=== PATIENT | female | born 1970 | race Caucasian/White ===

== ENCOUNTER 2016-06-08 11:33 | Emergency (ER) | payer MEDICARE, MEDICAID ==
[~2016-06-08] VITALS: Ht 160 cm; Wt 53.5 kg
[~2016-06-08 11:33] MED LIST: ALPR.5T PO; CYCL10TA9 PO; EPIN0.3P3 IM; HYDR1CAP2 PO; LAMO50TA2 PO; NAPR-243 PO; PRD20T PO
--- OUTSIDE RECORDS SUMMARY | 2016-06-08 11:41 | XMS REPORT ---
Author Author MORRIS NGUYEN [facility] Address [address] [place], [place] [id number] Care Team Providers Care Staff Forester Name Role Phone Leeanne NGUYEN PCP Unavailable Allergies and Adverse Reactions Name Reaction Notes codeine sulfate lovastatin muscle aches Plan of Treatment Not available. Medications Active Name Start Date Estimated Completion Date SIG Comments Zovirax 5 % topical ointment 07/05/2013 apply to the affected area(s) by topical route every 3 hours 6 times per day Flonase 50 mcg/actuation nasal spray,suspension 09/05/2013 inhale 1 spray by nasal route 2 times a day simvastatin 20 mg oral tablet 09/21/2013 take 1 tablet (20 mg) by oral route once daily in the evening cyclobenzaprine 10 mg oral tablet 03/20/2014 TAKE ONE TABLET BY MOUTH THREE TIMES A DAY hydrocodone-acetaminophen 7.5-325 mg oral tablet 10/25/2014 take 1 tablet by oral route every 6 hours as needed for pain Xanax 1 mg oral tablet 10/25/2014 04/23/2015 1 po BID PRN anxiety. must last 30 days simvastatin 20 mg oral tablet 10/25/2014 TAKE ONE TABLET BY MOUTH EVERY EVENING Vyvanse 30 mg oral capsule 01/29/2015 take 1 capsule (30 mg) by oral route once daily in the morning Name Start Date Expiration Date SIG Comments Darvocet-N 100 100-650 mg oral tablet 11/08/2009 take 1 tablet by oral route 4 times a day Fioricet 50-325-40 mg oral tablet 02/15/2010 02/18/2010 TAKE ONE TABLET BY MOUTH EVERY 4 HOURS NEEDED - NOT TO EXCEED 6 TABLETS PER 24 HOURS Vicodin 5-500 mg oral tablet 02/19/2010 02/19/2010 take 1 tablet by oral route every 4-6 hours as needed for pain Protonix 40 mg oral tablet,delayed release (DR/EC) 12/03/2010 12/03/2010 take 1 tablet (40 mg) by oral route at HS Diflucan 150 mg oral tablet 06/02/2011 06/04/2011 take 1 tablet po today and repeat in 1 week promethazine 25 mg oral tablet 06/03/2011 06/10/2011 TAKE ONE TABLET BY MOUTH EVERY 6 HOURS NEEDED Cipro 500 mg oral tablet 06/20/2011 06/30/2011 take 1 tablet (500 mg) by oral route every 12 hours for 10 days Medrol (Alexis) 4 mg oral tablets,dose pack 06/20/2011 06/26/2011 take as directed for 6 days Lamictal 100 mg oral tablet 07/08/2011 08/07/2011 TAKE ONE TABLET BY MOUTH TWICE A DAY Flexeril 10 mg oral tablet 11/25/2011 12/25/2011 TAKE ONE TABLET BY MOUTH THREE TIMES A DAY NEEDED FOR SPASMS pantoprazole 40 mg oral tablet,delayed release (DR/EC) 03/29/2012 03/29/2012 take 1 tablet (40 mg) by oral route once daily albuterol sulfate 90 mcg/actuation inhalation HFA aerosol inhaler 04/20/2012 04/20/2012 inhale 1 puff by inhalation route every 4-6 hours as needed sertraline 50 mg oral tablet 05/25/2012 05/25/2012 take 1 tablet (50 mg) by oral route BID Nasonex 50 mcg/actuation nasal spray,non-aerosol 09/07/2012 01/05/2013 spray 2 sprays in each nostril by intranasal route once daily for 30 days triamcinolone acetonide 0.1 % topical cream 09/28/2012 10/08/2012 apply a thin film to the affected skin areas by topical route 2 times per day for 10 days Medrol (Alexis) 4 mg oral tablets,dose pack 09/28/2012 take as directed cyclobenzaprine 10 mg oral tablet 09/28/2012 09/28/2012 take 1 tablet by oral route 3 times a day as needed for 30 days Strattera 25 mg oral capsule 09/05/2013 10/05/2013 take 1 capsule (25 mg) by oral route once daily in the morning for 30 days Suphedrine 30 mg oral tablet 06/12/2014 06/22/2014 take 2 tablets (60 mg) by oral route every 4 hours as needed for 10 days Discontinued Name Start Date Discontinued Date SIG Comments Lortab 7.5-500 mg oral tablet 10/08/2009 11/08/2009 take 1 tablet by oral route every 6 hours as needed for pain for 30 days Zovirax 5 % topical ointment 04/24/2011 04/13/2012 apply to the affected area(s) by topical route every 3 hours 6 times per day Prevacid 30 mg oral capsule,delayed release(DR/EC) 08/21/2011 03/01/2012 TAKE ONE CAPSULE BY MOUTH EVERY DAY BEFORE A MEAL lovastatin 20 mg oral tablet 10/13/2012 09/21/2013 take 1 tablet (20 mg) by oral route once daily with the evening meal Celexa 20 mg oral tablet 09/19/2013 12/15/2013 take 1 tablet (20 mg) by oral route once daily for 30 days Fetzima 40 mg oral capsule,extended release 24 hr 01/31/2014 05/15/2014 take 1 capsule (40 mg) by oral route once daily at approximately the same time each day Brintellix 5 mg oral tablet 05/15/2014 01/29/2015 take 1 tablet (5 mg) by oral route once daily at the same time each day Problem List Description Status Onset Gastroesophageal Reflux Active Muscle Spasm Active Neck pain Active Anxiety Active 10/07/2012 Hyperlipidemia, unspecified Active 10/07/2012 retirement medication use Active 10/07/2012 Panic disorder Active 10/07/2012 Chronic pain Active 03/01/2013 Depressive Disorder Active 05/15/2014 Paranoia Active 11/06/2014 Hypercholesteremia Active 03/26/2015 Chronic pain due to trauma Active 03/26/2015 Vital Signs Date Time BP-Sys(mm[Hg] BP-Shena(mm[Hg]) HR(bpm) RR(rpm) Temp WT HT HC BMI BSA BMI Percentile O2 Sat(%) 03/22/2015 9:20:00 AM 138 mmHg 70 mmHg 90 bpm 16 rpm 98.2 F 119.125 lbs 63 in 21.10 kg/m2 1.55 m2 100 % 03/13/2015 9:20:00 AM 130 mmHg 70 mmHg 92 bpm 16 rpm 98.4 F 117 lbs 61.5 in 21.7487 kg/m 1.5175 m 98 % 02/20/2015 8:04:00 AM 110 mmHg 60 mmHg 82 bpm 16 rpm 98.2 F 118 lbs 62.5 in 21.24 kg/m2 1.54 m2 100 % 01/22/2015 8:58:00 AM 110 mmHg 60 mmHg 102 bpm 18 rpm 97.6 F 124 lbs 61.5 in 23.0499 kg/m 1.5622 m 100 % 10/25/2014 8:27:00 AM 120 mmHg 70 mmHg 84 bpm 18 rpm 98.4 F 123 lbs 62.5 in 22.14 kg/m2 1.57 m2 98 % 06/06/2014 9:22:00 AM 110 mmHg 78 mmHg 87 bpm 18 rpm 97.9 F 130 lbs 63 in 23.0282 kg/m 1.619 m 100 % 05/11/2014 2:27:00 PM 100 mmHg 60 mmHg 90 bpm 20 rpm 98 F 132 lbs 63 in 23.38 kg/m2 1.63 m2 100 % 01/31/2014 9:47:00 AM 118 mmHg 66 mmHg 88 bpm 22 rpm 98.9 F 125.437 lbs 63 in 22.22 kg/m 1.5903 m 100 % 12/29/2013 8:32:00 AM 126 mmHg 68 mmHg 100 bpm 20 rpm 96.6 F 120 lbs 63 in 21.26 kg/m2 1.56 m2 100 % 12/15/2013 8:18:00 AM 110 mmHg 64 mmHg 76 bpm 20 rpm 96.9 F 120.25 lbs 63 in 21.3011 kg/m 1.5571 m 100 % 09/19/2013 8:42:00 AM 122 mmHg 64 mmHg 90 bpm 16 rpm 98.4 F 122 lbs 63 in 21.61 kg/m2 1.57 m2 100 % 09/05/2013 9:05:00 AM 126 mmHg 60 mmHg 114 bpm 22 rpm 98.7 F 117.5 lbs 63 in 20.814 kg/m 1.5392 m 100 % 06/01/2013 9:48:00 AM 118 mmHg 66 mmHg 90 bpm 20 rpm 97.8 F 125 lbs 63 in 22.14 kg/m2 1.59 m2 100 % 02/28/2013 11:23:00 AM 118 mmHg 70 mmHg 92 bpm 20 rpm 98.8 F 125 lbs 63 in 22.1425 kg/m 1.5875 m 100 % 01/24/2013 9:10:00 AM 122 mmHg 64 mmHg 112 bpm 20 rpm 98.2 F 124.312 lbs 63 in 22.02 kg/m2 1.58 m2 100 % 10/07/2012 8:28:00 AM 110 mmHg 60 mmHg 110 bpm 20 rpm 97.9 F 124 lbs 63 in 21.9654 kg/m 1.5812 m 96 % 04/13/2012 9:36:00 AM 130 mmHg 60 mmHg 78 bpm 16 rpm 97.9 F 128.562 lbs 63 in 22.77 kg/m2 1.61 m2 100 % 01/14/2012 10:26:00 AM 160 mmHg 60 mmHg 94 bpm 20 rpm 97.8 F 130 lbs 63 in 23.0282 kg/m 1.619 m 100 % 01/01/2012 9:33:00 AM 120 mmHg 60 mmHg 100 bpm 24 rpm 134 lbs 63 in 23.74 kg/m2 1.64 m2 100 % 09/25/2011 9:58:00 AM 114 mmHg 76 mmHg 80 bpm 138 lbs 63 in 24.4454 kg/m 1.6681 m 07/16/2011 10:00:00 AM 122 mmHg 80 mmHg 84 bpm 137 lbs 63 in 24.27 kg/m2 1.66 m2 04/29/2011 9:30:00 AM 112 mmHg 76 mmHg 84 bpm 138 lbs 63 in 24.4454 kg/m 1.6681 m 03/13/2011 11:17:00 AM 118 mmHg 76 mmHg 90 bpm 134 lbs 63 in 23.74 kg/m2 1.64 m2 12/03/2010 9:28:00 AM 122 mmHg 78 mmHg 90 bpm 129 lbs 05/22/2010 9:09:00 AM 114 mmHg 74 mmHg 76 bpm 133 lbs 04/01/2010 10:07:00 AM 118 mmHg 74 mmHg 72 bpm 129 lbs 11/07/2009 2:53:00 PM 110 mmHg 68 mmHg 84 bpm 131 lbs Social History Name Description Comments Tobacco Current every day smoker Alcohol Use History of Procedures Date Ordered Description Order Status 03/13/2015 12:00 AM COMPLETE CBC W/AUTO DIFF WBC Returned 03/13/2015 12:00 AM COMPREHEN METABOLIC PANEL Returned 03/13/2015 12:00 AM LIPID PANEL Returned 04/29/2011 12:00 AM THER/PROPH/DIAG INJ SC/IM Reviewed 04/29/2011 12:00 AM Decadron Inj.1mg-([facility]) [facility] #[id number] Reviewed 04/29/2011 12:00 AM Depo-Medrol 80 Mg Im/[facility] [id number] Reviewed 07/16/2011 12:00 AM THER/PROPH/DIAG INJ SC/IM Reviewed 07/16/2011 12:00 AM Decadron Inj.1mg-() [facility] #[id number] Reviewed 07/16/2011 12:00 AM Depo-Medrol 80 Mg Im/[facility] [id number] Reviewed 01/01/2012 12:00 AM THER/PROPH/DIAG INJ SC/IM Reviewed 01/01/2012 12:00 AM Decadron, Per 1 Mg [facility]# [address]-05 Reviewed 01/01/2012 12:00 AM Depo-Medrol, Per 80 Mg [facility]#2249-7586-68 Reviewed 01/01/2012 12:00 AM ROUTINE VENIPUNCTURE Reviewed 01/01/2012 12:00 AM COMPLETE CBC W/AUTO DIFF WBC Reviewed 01/01/2012 12:00 AM COMPREHEN METABOLIC PANEL Reviewed 01/01/2012 12:00 AM LIPID PANEL Reviewed 01/01/2012 12:00 AM ASSAY THYROID STIM HORMONE Reviewed 10/07/2012 12:00 AM COMPREHEN METABOLIC PANEL Reviewed 10/07/2012 12:00 AM LIPID PANEL Reviewed 10/07/2012 12:00 AM ROUTINE VENIPUNCTURE Reviewed 01/24/2013 12:00 AM COMPLETE CBC W/AUTO DIFF WBC Reviewed 01/24/2013 12:00 AM COMPREHEN METABOLIC PANEL Reviewed 01/24/2013 12:00 AM LIPID PANEL Reviewed 01/24/2013 12:00 AM ROUTINE VENIPUNCTURE Reviewed 01/24/2013 12:00 AM THER/PROPH/DIAG INJ SC/IM Reviewed 01/24/2013 12:00 AM Decadron, Per 1 Mg [facility]# [address]-44 Reviewed 01/24/2013 12:00 AM Depo-Medrol, Per 80 Mg [facility]#7201-1250-04 Reviewed 01/24/2013 12:00 AM Toradol 60 Mg [facility]#2516-4304-66 Reviewed 09/19/2013 12:00 AM COMPLETE CBC W/AUTO DIFF WBC Reviewed 09/19/2013 12:00 AM COMPREHEN METABOLIC PANEL Reviewed 09/19/2013 12:00 AM LIPID PANEL Reviewed 09/19/2013 12:00 AM ASSAY THYROID STIM HORMONE Reviewed 09/19/2013 12:00 AM ROUTINE VENIPUNCTURE Reviewed 05/22/2010 12:00 AM THER/PROPH/DIAG INJ SC/IM Reviewed 05/22/2010 12:00 AM Decadron Inj.8mg-([facility]) [facility] #[id number] Reviewed 05/22/2010 12:00 AM Depo-Medrol 80 Mg Im/[facility] [id number] Reviewed 12/15/2013 12:00 AM COMPREHEN METABOLIC PANEL Reviewed 12/15/2013 12:00 AM LIPID PANEL Reviewed 12/15/2013 12:00 AM ROUTINE VENIPUNCTURE Reviewed 12/15/2013 12:00 AM EXC TR-EXT B9+RICHI 0.6-1 CM Reviewed 12/15/2013 12:00 AM EXC H-F-NK-SP B9+RICHI 0.6-1 Reviewed 12/15/2013 12:00 AM EXC FACE-MM B9+RICHI 0.6-1 CM Reviewed Results Summary Data and Description Results 01/01/2012 3:49 PM WBC 6.5 RBC 4.43 HGB 13.90 g/dLHCT 42.10 %MCV 95.0 fLMCH 31.40 pgMCHC 33.0 g/dLRDW CV 12.30 %MPV 11.0 fLPLT 368 GLUCOSE 82.0 mg/dLSODIUM 139.0 mmol/LPOTASSIUM 4.20 mmol/LCHLORIDE 105.0 mmol/LCO2 23.0 mmol/LBUN 10.0 mg /dLCREATININE 0.80 mg/dLSGOT/AST 15.0 IU/LSGPT/ALT 8.0 IU/LALK PHOS 64.0 IU/ LTOTAL PROTEIN 7.10 g/dLALBUMIN 4.40 g/dLTOTAL BILI 0.50 mg/dLCALCIUM 9.80 mg/ dLeGFR 60 TRIGLYCERIDES 230.0 mg/dLCHOLESTEROL 234.0 mg/dLHDL 39.0 mg/dLLDL ( CALC) 149.0 mg/dLTSH 0.860 uIU/mL 10/07/2012 4:27 PM GLUCOSE 67.0 mg/dLSODIUM 141.0 mmol/LPOTASSIUM 4.90 mmol/ LCHLORIDE 101.0 mmol/LCO2 27.0 mmol/LBUN 11.0 mg/dLCREATININE 0.70 mg/dLSGOT/ AST 16.0 IU/LSGPT/ALT 13.0 IU/LALK PHOS 59.0 IU/LTOTAL PROTEIN 7.40 g/dLALBUMIN 4.40 g/dLTOTAL BILI 0.20 mg/dLCALCIUM 9.80 mg/dLeGFR 60 TRIGLYCERIDES 198.0 mg/ dLCHOLESTEROL 251.0 mg/dLHDL 53.0 mg/dLLDL (CALC) 158.0 mg/dL 01/24/2013 3:44 PM WBC 6.3 RBC 4.47 HGB 14.40 g/dLHCT 42.0 %MCV 94.0 fLMCH 32.20 pgMCHC 34.30 g/dLRDW CV 12.50 %MPV 10.40 fLPLT 353 %NEUT 55.10 %%LYMP 38.60 %%MONO 5.60 %%EOS 0.50 %%BASO 0.20 %#NEUT 3.47 #LYMP 2.43 #MONO 0.35 #EOS 0.03 #BASO 0.01 GLUCOSE 93.0 mg/dLSODIUM 138.0 mmol/LPOTASSIUM 4.40 mmol/ LCHLORIDE 103.0 mmol/LCO2 23.0 mmol/LBUN 9.0 mg/dLCREATININE 0.70 mg/dLSGOT/AST 22.0 IU/LSGPT/ALT 18.0 IU/LALK PHOS 56.0 IU/LTOTAL PROTEIN 7.20 g/dLALBUMIN 4.70 g/dLTOTAL BILI 0.50 mg/dLCALCIUM 9.70 mg/dLeGFR >60 mL/min/1.73 [id number] 127.0 mg/dLCHOLESTEROL 249.0 mg/dLHDL 58.0 mg/dLLDL (CALC) 166.0 mg/dL 09/19/2013 5:22 PM GLUCOSE 91.0 mg/dLSODIUM 137.0 mmol/LPOTASSIUM 4.0 mmol/ LCHLORIDE 103.0 mmol/LCO2 23.0 mmol/LBUN 11.0 mg/dLCREATININE 0.70 mg/dLSGOT/ AST 22.0 IU/LSGPT/ALT 20.0 IU/LALK PHOS 67.0 IU/LTOTAL PROTEIN 7.30 g/dLALBUMIN 4.40 g/dLTOTAL BILI 0.40 mg/dLCALCIUM 9.60 mg/dLeGFR 60 TSH 1.430 uIU/ mLTRIGLYCERIDES 190.0 mg/dLCHOLESTEROL 264.0 mg/dLHDL 55.0 mg/dLLDL (CALC) 171.0 mg/dLWBC 7.1 RBC 4.60 HGB 14.40 g/dLHCT 43.20 %MCV 94.0 fLMCH 31.30 pgMCHC 33.30 g/dLRDW CV 12.90 %MPV 10.70 fLPLT 329 %NEUT 50.60 %%LYMP 38.80 %% MONO 9.0 %%EOS 1.30 %%BASO 0.30 %#NEUT 3.61 #LYMP 2.77 #MONO 0.64 #EOS 0.09 # BASO 0.02 12/15/2013 2:04 PM TRIGLYCERIDES 111.0 mg/dLCHOLESTEROL 213.0 mg/dLHDL 70.0 mg/ dLLDL (CALC) 121.0 mg/dLGLUCOSE 89.0 mg/dLSODIUM 138.0 mmol/LPOTASSIUM 3.90 mmol /LCHLORIDE 102.0 mmol/LCO2 27.0 mmol/LBUN 9.0 mg/dLCREATININE 0.70 mg/dLSGOT/ AST 28.0 IU/LSGPT/ALT 39.0 IU/LALK PHOS 65.0 IU/LTOTAL PROTEIN 7.50 g/dLALBUMIN 4.60 g/dLTOTAL BILI 0.90 mg/dLCALCIUM 9.60 mg/dLeGFR 60 03/13/2015 4:22 PM WBC 7.1 RBC 4.61 HGB 14.80 g/dLHCT 44.40 %MCV 96.0 fLMCH 32.10 pgMCHC 33.30 g/dLRDW CV 12.70 %MPV 10.60 fLPLT 335 %NEUT 54.30 %%LYMP 38.80 %%MONO 5.70 %%EOS 0.80 %%BASO 0.40 %#NEUT 3.84 #LYMP 2.74 #MONO 0.40 #EOS 0.06 #BASO 0.03 GLUCOSE 104.0 mg/dLSODIUM 137.0 mmol/LPOTASSIUM 3.80 mmol/ LCHLORIDE 102.0 mmol/LCO2 24.0 mmol/LBUN 7.0 mg/dLCREATININE 0.80 mg/dLSGOT/AST 13.0 IU/LSGPT/ALT 15.0 IU/LALK PHOS 56.0 IU/LTOTAL PROTEIN 7.0 g/dLALBUMIN 4.70 g/dLTOTAL BILI 0.80 mg/dLCALCIUM 9.80 mg/dLeGFR >60 mL/min/1.73mTRIGLYCERIDES 87.0 mg/dLCHOLESTEROL 244.0 mg/dLHDL 58.0 mg/dLLDL (CALC) 169.0 mg/dL History Of Immunizations Not available. 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/07/2012 Panic disorder 10/07/2012 Chronic pain 03/01/2013 Depressive Disorder 05/15/2014 Gastroesophageal Reflux Apr 01 2010 10:07AM Headache Apr 01 2010 10:07AM Anxiety Disorder Apr 01 2010 10:07AM General Medical Exam, Adult Apr 01 2010 10:07AM Paranoia 11/06/2014 Migraine May 22 2010 9:08AM Depressive Disorder May 22 2010 9:08AM General Medical Exam, Adult May 22 2010 9:08AM Eustachian Tube Dysfunction May 22 2010 9:08AM Hypercholesteremia 03/26/2015 Chronic pain due to trauma 03/26/2015 Pain in joint; Knee Left Dec 03 2010 9:26AM Headache Mar 13 2011 11:13AM Anxiety Disorder Mar 13 2011 11:13AM Cervicalgia Mar 13 2011 11:13AM Nasopharyngitis, Acute (Common Cold) Apr 29 2011 9:34AM Post-nasal drainage Apr 29 2011 9:34AM Anxiety Disorder Jul 16 2011 10:01AM Insomnia Jul 16 2011 10:01AM Seasonal Allergies Jul 16 2011 10:01AM General Medical Exam, Adult Sep 25 2011 10:00AM Migraine Jan 01 2012 9:34AM Anxiety Disorder Jan 01 2012 9:34AM Depressive Disorder Jan 01 2012 9:34AM Seasonal Allergies Jan 01 2012 9:34AM General Medical Exam, Adult Jan 01 2012 9:34AM Hyperlipidemia, unspecified Jan 14 2012 10:33AM Headache Jan 14 2012 10:33AM Anxiety Disorder Jan 14 2012 10:33AM Cervicalgia Jan 14 2012 10:33AM Chronic pain Jan 14 2012 10:33AM Hyperlipidemia, unspecified Apr 13 2012 9:36AM Anxiety Disorder Apr 13 2012 9:36AM Tobacco Abuse Apr 13 2012 9:36AM Neck Pain Apr 13 2012 9:36AM Depressive Disorder Apr 13 2012 9:36AM Gastroesophageal Reflux Oct 07 2012 8:33AM Anxiety Oct 07 2012 8:33AM Hyperlipidemia, unspecified Oct 07 2012 8:33AM extermination supervisor medication use Oct 07 2012 8:33AM Anxiety Disorder Oct 07 2012 8:29AM Muscle Spasm Oct 07 2012 8:29AM Panic Disorder Oct 07 2012 8:29AM Anxiety Jan 24 2013 9:13AM Hyperlipidemia, unspecified Jan 24 2013 9:13AM extermination supervisor medication use Jan 24 2013 9:13AM Gastroesophageal Reflux Jan 24 2013 9:13AM Low Back Pain Jan 24 2013 9:10AM Sprain/Strain Jan 24 2013 9:10AM Hyperlipidemia, unspecified Feb 28 2013 11:23AM Chronic pain Feb 28 2013 11:23AM Dietary Counseling Feb 28 2013 11:23AM Anxiety Feb 28 2013 11:23AM Panic Disorder Feb 28 2013 11:23AM Abdominal Pain, Generalized Jun 01 2013 9:48AM Sprain/Strain Jun 01 2013 9:48AM Abdominal Tenderness, LLQ Jun 01 2013 9:48AM Seasonal Allergies Sep 05 2013 9:05AM Anxiety Sep 05 2013 9:05AM Panic Disorder Sep 05 2013 9:05AM Obsessive compulsive disorder Sep 05 2013 9:05AM Anxiety Sep 19 2013 8:44AM Chronic pain Sep 19 2013 8:44AM Hyperlipidemia, unspecified Sep 19 2013 8:44AM extermination supervisor medication use Sep 19 2013 8:44AM Gastroesophageal Reflux Sep 19 2013 8:44AM Tobacco Abuse Sep 19 2013 8:42AM Fatigue Sep 19 2013 8:42AM Anxiety Sep 19 2013 8:42AM Panic Disorder Sep 19 2013 8:42AM Hyperlipidemia, unspecified Sep 19 2013 8:42AM Hyperlipidemia, unspecified Dec 15 2013 11:32AM extermination supervisor medication use Dec 15 2013 11:32AM Benign cyst of skin Dec 15 2013 11:55AM Anxiety Dec 15 2013 8:18AM Panic Disorder Dec 15 2013 8:18AM Muscle Spasm Dec 15 2013 8:18AM Epidermal cyst Dec 15 2013 8:18AM Hyperlipidemia, unspecified Dec 29 2013 8:33AM Chronic pain Dec 29 2013 8:33AM Anxiety Disorder Dec 29 2013 8:33AM Depressive Disorder Dec 29 2013 8:33AM Tobacco Abuse Dec 29 2013 8:33AM Seasonal Allergies Dec 29 2013 8:33AM Anxiety Dec 29 2013 8:33AM Panic Disorder Dec 29 2013 8:33AM Muscle Spasm Dec 29 2013 8:33AM Neck Pain Dec 29 2013 8:33AM Anxiety Disorder Jan 31 2014 9:48AM Depressive Disorder Jan 31 2014 9:48AM Constipation Jan 31 2014 9:48AM Panic anxiety syndrome Jan 31 2014 9:48AM Depressive Disorder May 11 2014 2:27PM Anxiety May 11 2014 2:27PM Panic Disorder May 11 2014 2:27PM Muscle spasm May 11 2014 2:27PM Neck pain May 11 2014 2:27PM Eustachian Tube Dysfunction Jun 06 2014 9:24AM Upper Respiratory Infection Jun 06 2014 9:24AM Sinus pressure Jun 06 2014 9:24AM Abdominal Pain, Generalized Oct 25 2014 8:27AM Depressive Disorder Oct 25 2014 8:27AM Anxiety Oct 25 2014 8:27AM Panic disorder Oct 25 2014 8:27AM Gastroesophageal Reflux Oct 25 2014 8:27AM Paranoia Oct 25 2014 8:27AM Shoulder pain, right Jan 22 2015 8:59AM Rotator cuff Sprain/injury Jan 22 2015 8:59AM Anxiety Feb 20 2015 8:05AM Panic disorder Feb 20 2015 8:05AM OCD (obsessive compulsive disorder) Feb 20 2015 8:05AM Memory difficulties Feb 20 2015 8:05AM ADD (attention deficit disorder) Feb 20 2015 8:05AM Anxiety Mar 13 2015 9:32AM Hyperlipidemia, unspecified Mar 13 2015 9:32AM extermination supervisor medication use Mar 13 2015 9:32AM Gastroesophageal Reflux Mar 13 2015 9:32AM Acute Breast lump in female Mar 13 2015 9:21AM Chronic pain due to trauma Mar 22 2015 9:21AM Moderate Acute Hypercholesteremia Mar 22 2015 9:21AM Moderate Chronic Anxiety Mar 22 2015 9:21AM Chronic Panic disorder Stable Mar 22 2015 9:21AM Chronic Paranoia Stable Mar 22 2015 9:21AM Gastroesophageal reflux disease without esophagitis Mar 22 2015 9:21AM Moderate Chronic Neck pain Stable Mar 22 2015 9:21AM Payers Insurance Name Company Name Plan Name Plan Number Policy Number Policy Group Number Start Date Medicare Part A Medicare Part A [id number] N/A [place] [employer] [place] [employer] Pro[place] [id number] N/A Fernie Barriga [employer] Raquel Garza. Fernie Barriga & Greg, [facility] 4-18 -11 N/A [facility] [id number] N/A [place] [employer] Prog - [facility] Asst Prog [facility] [id number] N/A History of Encounters Visit Date Visit Type Provider 03/22/2015 Office visit MORRIS CUELLO 03/13/2015 Office visit MORRIS NGUYEN PA 02/20/2015 Office visit MORRIS CUELLO 01/22/2015 Office visit MORRIS NGUYEN PA 10/25/2014 Office visit MORRIS CUELLO 06/06/2014 Office visit MORRIS CUELLO 05/11/2014 Office visit MORRIS NGUYEN PA 01/31/2014 Office visit MORRIS NGUYEN PA 12/29/2013 Office visit MORRIS CUELLO 12/15/2013 Office visit MORRIS CUELLO 09/19/2013 Office visit MORRIS CUELLO 09/05/2013 Office visit MORRIS CUELLO 06/01/2013 Office visit MORRIS CUELLO 02/28/2013 Office visit MORRIS CUELLO 01/24/2013 Office visit MORRIS CUELLO 10/07/2012 Office visit MORRIS CUELLO 04/13/2012 Office visit MORRIS NGUYEN PA 01/14/2012 Office visit MORRIS NGUYEN PA 01/01/2012 Office visit MORRIS NGUYEN PA 09/25/2011 Office visit MORRIS NGUYEN PA 07/16/2011 Office visit MORRIS NGUYEN PA 04/29/2011 Office visit MORRIS NGUYEN PA 03/13/2011 Office visit MORRIS NGUYEN PA 12/03/2010 Office visit Morris Nguyen PA-C 08/29/2010 Office visit Morris Nguyen PA-C 05/22/2010 Office visit Morris Nguyen PA-C 04/01/2010 Office visit Morris Nguyen PA-C 11/07/2009 Office visit Morris Nguyen PA-C 03/16/2009 Office visit Morris Nguyen PA-C
[2016-06-08] MEDS ORDERED: ALPR1TAB7 (12:08)
[2016-06-08] MEDS ORDERED: DEXL60CA (12:17)
[2016-06-08] MEDS ORDERED: CYCL10TA9 (12:17)
[2016-06-08] MEDS ORDERED: LISD30CA3 (12:17)
[2016-06-08] MEDS ORDERED: HYDR-3816 (12:17)
--- NOTE | 2016-06-08 12:37 | ED General ---
General Chief Complaint: General Problems/Pain Stated Complaint: DIZZY/CONFUSED/EARS RINGING Nursing Triage Note: PT TO ROOM 9 CO OF DIZZINESS, INCREASED ANXIEY, SOME CONFUSION, EARS RINGING R EAR NEW, R EAR PAIN,SORE TONGUE, STATES HEATER IN HOME NOT FUNCTIONING RIGHT DONT KNOW IF ANYTHING IS WRONG, PT VERY ANXIOUS, HX HEAD INJURY Nursing Sepsis Screen: No Definite Risk Source of Information: Patient, Other (the patient's paver layer) Exam Limitations: Other (the patient is a very scattered historian. The patient does not appear to be having any visual or auditory hallucinations. Her pressed speech however is suggestive of flight of ideas.) History of Present Illness Time Seen by Provider: 12:32 Initial Comments 46-year-old white female presents with a history of persistent dizziness and complex dysphoria that has been present for the last several years. The patient is very concerned that she is suffering from carbon monoxide poisoning and would like to have this tested. The patient also has had long-standing tinnitus. The etiology remains unclear. However she is scheduled to see an certified nurse in 2 days for evaluation of the period The patient suffers from anxiety. She has acid disease. The patient's had previous closed head injury which may be the source of the tinnitus. Allergies and Home Medications Allergies Coded Allergies: bee venom (honey bee) (Unverified Allergy, Severe, SWELLING, 02/26/14) codeine (Unverified Allergy, Unknown, 02/26/14) tramadol (Unverified Allergy, Unknown, 02/26/14) Uncoded Allergies: SULFA (Allergy, Unknown, 02/26/14) Home Medications Alprazolam 1 Mg Tablet #90 (Reported) Cyclobenzaprine HCl 10 Mg Tablet #60 (Reported) Dexlansoprazole 60 Mg bp #30 (Reported) Epinephrine 0.3 Mg/0.3 Ml Pen.injctr #2 0.3 MG IM PRN PRN PRN WHEEZING Prescribed by: RODO REILLY on 02/26/14 1627 Hydrocodone Bit/Acetaminophen 1 Each Capsule #20 1-2 EACH PO Q 4 - 6 HRS PRN Prescribed by: KYLE LONG on 01/02/10 1539 Hydrocodone/Acetaminophen 1 Each Tablet #60 (Reported) Lisdexamfetamine Dimesylate 30 Mg Capsule #30 (Reported) Constitutional: No chills, No fever EENTM: otherNo ear pain Respiratory: No cough Cardiovascular: No chest pain Gastrointestinal: No abdominal pain, No diarrhea, No vomiting Genitourinary: no symptoms reported Musculoskeletal: no symptoms reported Skin: No rash Psychiatric/Neurological: Anxiety Headache Hematologic/Lymphatic: No Symptoms Reported Immunological/Allergic: no symptoms reported Past Uklevdc-Hkktcn-Tpioci Hx Patient Social History Alcohol Use: Occasionally Uses Recreational Drug Use: Yes (POT) Smoking Status: Current Everyday Smoker Recent Foreign Travel: No Contact w/Someone Who Travel: No Recent Infectious Disease Expo: No Recent Hopitalizations: No Immunizations Up To Date Tetanus Booster (TDap): Less than 5yrs Seasonal Allergies Seasonal Allergies: Yes Surgeries HX Surgeries: Yes Surgeries: Gallbladder, Hysterectomy Respiratory Hx Respiratory Disorders: No Cardiovascular Hx Cardiac Disorders: No Neurological Hx Neurological Disorders: No Reproductive System Hx Reproductive Disorders: No Sexually Transmitted Disease: No NEUROLOGICAL SURGEON History: Hysterectomy Genitourinary Hx Genitourinary Disorders: No Gastrointestinal Hx Gastrointestinal Disorders: No Musculoskeletal Hx Musculoskeletal Disorders: No Musculoskeletal Disorders: Degenerate Disk Disease, Arthritis Endocrine Hx Endocrine Disorders: No HEENT HX ENT Disorders: No Cancer Hx Cancer: No Cancer: Uterine Psychosocial Hx Psychiatric Problems: Yes Behavioral Health Disorders: ODD, Depression Integumentary HX Skin/Integumentary Disorder: No Blood Transfusions Hx Blood Disorders: No Reviewed Nursing Assessment Reviewed/Agree w Nursing PMH: Yes Family Medical History Significant Family History: No Pertinent Family Hx Physical Exam Vital Signs Vital Sign - Last 12Hours 06/08/16 11:50 Temp 97.5 Pulse 88 Resp 18 B/P 128/98 Pulse Ox 94 O2 Delivery Room Air Capillary Refill : Less Than 3 Seconds General Appearance: WD/WN Anxious Eyes: Bilateral Eye Normal Inspection HEENT: TMs Normal Pharynx Normal Neck: Full Range of Motion Supple Respiratory: Lungs Clear Normal Breath Sounds Cardiovascular: Regular Rate, Rhythm No Murmur Gastrointestinal: Normal Bowel Sounds Non Tender Soft Extremity: Normal Range of Motion Neurologic/Psychiatric: Oriented x3 No Motor/Sensory Deficits Skin: Normal Color Warm/Dry Progress/Results/Core Measures Results/Orders Lab Results Laboratory Tests Test 06/08/16 12:07 06/08/16 13:34 Range/Units Urine Bacteria MODERATE H /HPF Urine Bilirubin NEGATIVE NEGATIVE Urine Casts NONE /LPF Urine Clarity CLEAR Urine Color YELLOW Urine Crystals NONE /LPF Urine Culture Indicated NO Urine Glucose (UA) NEGATIVE NEGATIVE Urine Ketones NEGATIVE NEGATIVE Urine Leukocyte Esterase NEGATIVE NEGATIVE Urine Mucus NEGATIVE /LPF Urine Nitrite NEGATIVE NEGATIVE Urine Protein NEGATIVE NEGATIVE Urine RBC NONE /HPF Urine RBC (Auto) NEGATIVE NEGATIVE Urine Specific [place] 1.010 L 1.016-1.022 Urine Squamous Epithelial Cells 5-10 /HPF Urine Urobilinogen NORMAL NORMAL MG/DL Urine WBC RARE /HPF Urine pH 6 5-9 Carboxyhemoglobin 7.3 H 0.5-2.5 % My Orders Orders-SUSIE RICKETTS MD Carboxyhemoglobin (06/08/16 12:30) Ua Culture If Indicated (06/08/16 13:14) Vital Signs/I&O Vital Sign - Last 12Hours 06/08/16 11:50 Temp 97.5 Pulse 88 Resp 18 B/P 128/98 Pulse Ox 94 O2 Delivery Room Air Blood Pressure Mean: 108 Progress Note : Time: 13:58 Progress Note Patient's carboxyhemoglobin was 7.3. Urinalysis was unremarkable. I discussed findings with the patient and her friend. This could be consistent with chronic carbon monoxide poisoning. Departure Impression Impression: Primary Impression: Carbon monoxide exposure Disposition: 01 HOME, SELF-CARE Condition: Unchanged Departure-Patient Inst. Decision time for Depature: 13:59 Referrals: [facility],LOCAL PHYSICIAN (PCP) Primary Care Physician Patient Instructions: Carbon Monoxide Poisoning (DC) Add. Discharge Instructions: Follow-up with your caregiver choice tomorrow or with [facility]. Avoid further possible carbon monoxide exposure at home. All discharge instructions reviewed with patient and/or family. Voiced understanding. SUSIE RICKETTS MD Jun 08, 2016 12:36
[2016-06-08 13:26] LABS: BILIRUBIN,URINE NEGATIVE (NEGATIVE); KETONES,URINE NEGATIVE (NEGATIVE); LEUKOCYTE ESTERASE ,URINE NEGATIVE (NEGATIVE); NITRITE,URINE NEGATIVE (NEGATIVE); PH,URINE 6 (5-9); PROTEIN,URINE NEGATIVE (NEGATIVE); UROBILINOGEN,URINE NORMAL (NORMAL)
[2016-06-08 13:50] LABS: WBC,URINE RARE /HPF
[2016-06-08 14:13] VITALS: BP 122/88
== END 2016-06-08 14:13 | disposition home or self-care (01) ==
LOC: EDUNIT# 11:33 → ER 11:34
DX: R42 Dizziness and giddiness (principal); T58.91XA Toxic effect of carbon monoxide from unspecified source, accidental (unintentional), initial encounter; F41.9 Anxiety disorder, unspecified; F17.210 Nicotine dependence, cigarettes, uncomplicated
CPT/HCPCS: 81000; 82375; 99282